=== PATIENT | male | born 1955 | race Caucasian/White ===

== ENCOUNTER 2020-01-26 12:52 | Emergency (ER) | payer MEDICARE, MEDICAID, SELFPAY ==
[2020-01-26 13:13] VITALS: BP 124/91; PULSE 84; RESP 20; TEMP 37.2; O2SAT 100
--- NOTE | 2020-01-26 13:20 | ED.CHESTPAIN ---
HPI - Chest Pain General Chief Complaint: Chest Pain Stated Complaint: chest pain History of Present Illness HPI narrative: This is a 65 year old male that comes in complaining of shortness of breath and being anxious. Patient pointing to his chest and his is having some chest pain. Patient states that his body feels like it is burning. Patient is not able to hear. I did discuss with patient his condition using sign language. Patient wanted me to call his sister Mr. Esparza at [phone] Related Data Home Medications Medication Instructions Recorded Confirmed benztropine 01/26/20 furosemide 01/26/20 gabapentin 01/26/20 levothyroxine 01/26/20 lithium carbonate PO 01/26/20 lithium carbonate PO 01/26/20 naproxen 01/26/20 omeprazole 01/26/20 oxcarbazepine 01/26/20 quetiapine 01/26/20 risperidone mg 01/26/20 risperidone microspheres mg IM 01/26/20 [Risperdal Consta] rosuvastatin mg 01/26/20 tamsulosin mg PO 01/26/20 trazodone 01/26/20 trihexyphenidyl 01/26/20 Allergies Allergy/AdvReac Type Severity Reaction Status Date / Time No Known Allergies Allergy Unverified 11/03/16 18:26 Review of Systems Review of Systems: Narrative: CONSTITUTIONAL: Denies fever, chills, or sweats. EYES: Denies visual changes, redness, or discharge. ENT: Denies rhinorrhea, congestion, sore throat, or otalgia. CARDIOVASCULAR:reports chest pain, palpitations, or edema. RESPIRATORY: reports cough or dyspnea. GASTROINTESTINAL: Denies abdominal pain, nausea, vomiting, or diarrhea. GENITOURINARY: Denies dysuria or hematuria. SKIN:[Denies rash or itching. MUSCULOSKELETAL:Denies back pain, joint pain, or myalgia. NEUROLOGIC: Denies headache, numbness, or weakness. PSYCHIATRIC:reports anxiety or depression PMFSH Comments At time as signature, I have reviewed and agree with nursing past medical, social, surgical and family history. Please see nursing chart for further information. There is no relevant family history pertinent to the presenting complaint. Exam Narrative: Exam Narrative: GENERAL:Well-appearing, well-nourished, and in no acute distress. HEAD:Normocephalic, atraumatic. EYES: PERRLA and EOMI. ENT: Nares clear, no rhinorrhea or epistaxis. Mucous membranes moist. NECK: Supple. CHEST: Clear to auscultation. No respiratory distress. positive taking deep breaths and pacing with sporadic deep breaths. HEART: Regular rate and rhythm. No murmur heard. Normal peripheral pulses. ABDOMEN: Soft, nontender, nondistended, normal active bowel sounds. EXTREMITIES: Normal range of motion. No edema. SKIN: Warm, dry, no rash. NEURO: No focal deficits. Alert and oriented x3. very anxious Course Vital Signs Vital signs: Vital Signs Temperature 98.9 F 01/26/20 13:13 Pulse Rate 84 01/26/20 13:13 Respiratory Rate 20 01/26/20 13:13 Blood Pressure 124/91 H 01/26/20 13:13 Pulse Oximetry 100 01/26/20 13:13 Temperature 98.9 F 01/26/20 13:13 Pulse Rate 84 01/26/20 13:13 Respiratory Rate 01/26/20 13:13 Blood Pressure 124/91 H 01/26/20 13:13 Pulse Oximetry 100 01/26/20 13:13 Transfer Transfered to: Other ([facility] ) Transportation: Other (Personal vehicle refused ambulance per patient he cannot leave his car here. ) MDM - Chest Pain Differential Diagnosis Differential diagnosis: Likely pneumothorax, atypical chest pain, costochondritis and other Discharge Plan Discharge Clinical Impression: Anxiety, Breath shortness Patient Disposition: Acute Care Hospital Condition: Stable Prescriptions: No Action naproxen 250 mg tablet RF: 0 lithium carbonate 300 mg tablet extended release PO RF: 0 lithium carbonate 300 mg tablet extended release PO RF: 0 oxcarbazepine 300 mg tablet RF: 0 quetiapine 100 mg tablet RF: 0 levothyroxine 75 mcg tablet RF: 0 risperidone 2 mg tablet RF: 0 tamsulosin
== END 2020-01-26 13:46 | disposition short-term general hospital (02) ==
PROVIDERS: Emergency Provider Nurse Practitioner Family
DX: F41.9 Anxiety disorder, unspecified (principal); R06.02 Shortness of breath
CPT/HCPCS: 93005; 99213; G0463

== ENCOUNTER 2020-01-31 05:35 | Emergency (ER) | payer MEDICARE, MEDICAID, SELFPAY ==
--- NOTE | ~2020-01-31 | XR_ITS ---
EXAMINATION: XR chest 1V portable DATE: 01/31/2020 06:18 INDICATION: Shortness of breath TECHNIQUE: frontal view of the chest was obtained. COMPARISON: Chest radiograph dated 12/04/2017 FINDINGS: Eventration along the right hemidiaphragm. Mild biapical pleural-parenchymal scarring. No pulmonary e adriana, pleural effusion or pneumothorax. Moderate-sized hiatal hernia. Heart size is normal. Mild thor acic dextrocurvature with mild spondylosis.. IMPRESSION: 1. No acute cardiopulmonary disease. 2. Moderate sized hiatal hernia. Reviewed, dictated and finalized at location A.
--- NOTE | ~2020-01-31 | CT_ITS ---
EXAMINATION: CT brain wo con DATE: 01/31/2020 07:03 INDICATION: Frequent falls. Unable to follow commands. TECHNIQUE: Computed tomography (CT) of the head was performed without intravenous contrast. Sagittal and coronal reconstructions were performed. The mA was adjusted according to patient size. Iterative reconstruction technique was employed. The dose-length product was 908.00 mGy-cm. COMPARISON: head CT dated 08/04/2019 FINDINGS: No fracture. No acute intracranial hemorrhage, acute infarction or abnormal extra axial fluid collect ion. Ventricles are normal and symmetric. No mass/mass effect. Mild mucosal thickening the bilateral ethmoid sinuses. Small mucous retention cyst in the bilateral maxillary sinuses. The orbits and masto id air cells are normal. IMPRESSION: 1. No acute intracranial process. Reviewed, dictated and finalized at location A.
[2020-01-31 05:36] VITALS: BP 131/75; PULSE 78; RESP 21; TEMP 37; O2SAT 97
[2020-01-31 05:46] VITALS: PULSE 78
--- NOTE | 2020-01-31 05:46 | ECG_ITS ---
Measurements Intervals [place] Rate: 78 P: 151 ME: 180 QRS: 193 QRSD: 94 T: 163 QT: 390 QTc: 444 Interpretive Statements SINUS RHYTHM ARM LEADS REVERSED INCOMPLETE RIGHT BUNDLE BRANCH BLOCK BORDERLINE T WAVE ABNORMALITY- INFERIOR LEADS BASELINE ARTIFACT- II, III, AVF BORDERLINE ECG Electronically Signed On 01-31-2020 7:16:45 CDT by Mj Fontanez D.O.
[2020-01-31 06:06] LABS: Basophils Absolute Auto 0.1 K/mm3 (0.0-0.1); Basophils Percent Auto 0.5 % (0.2-1.2); Eosinophils Absolute Auto 0.7 K/mm3 (0-0.3); Eosinophils Percent Auto 4.1 % (0-4.4); Hemoglobin 11.3 g/dL (14.0-18.0); Immature Granulocyte Absolute 0.07 K/mm3 (0.00-0.031); Immature Granulocyte Percent A 0.4 % (0-0.5); Lymphocytes Absolute Auto 1.69 K/mm3 (0.9-3.2); Lymphocytes Percent Auto 10.3 % (18.3-44.2); Mean Corpuscular HGB Conc 31.4 g/dl (32-36); Mean Corpuscular Hemoglobin 31.1 pg (26-34); Mean Corpuscular Volume 99.2 fl (80-100); Mean Platelet Volume 9.3 fl (7.4-10.4); Monocytes Absolute Auto 0.9 K/mm3 (0.1-0.6); Monocytes Percent Auto 5.7 % (2.6-8.5); Platelet Count Result 356 k/mm3 (150-375); Red Blood Count 3.63 M/mm3 (4.6-6.20); Red Cell Distribution Width 12.7 % (11.5-14.5); White Blood Count 16.4 K/mm3 (4.5-10.0)
--- NOTE | 2020-01-31 06:28 | PC.NURSE ---
Pt reports he is Hard of hearing and is able to sign. pt reports he feels like it is hard to walk and feels like he cannot hold things. pt reports he has been falling a lot. spoke w/ grain operations manager Yin #[id number]
[2020-01-31 06:34] LABS: Blood Urea Nitrogen 12 mg/dL (9-20); Calcium 9.1 mg/dL (8.4-10.2); Carbon Dioxide 25 mmol/L (22-30); Chloride 107 mmol/L (98-107); Estimated Glomerular Filt Rate > 60; Glucose 95 mg/dL (75-110); Sodium 138 mmol/L (137-145)
[2020-01-31 06:50] VITALS: BP 120/71; PULSE 76; RESP 19; O2SAT 95
--- NOTE | 2020-01-31 06:50 | PC.NURSE ---
pt down to ct
[2020-01-31 06:53] LABS: Potassium 4.2 mmol/L (3.4-5.0)
[2020-01-31 07:22] VITALS: BP 126/74; PULSE 85; RESP 20; TEMP 36.9; O2SAT 98
--- NOTE | 2020-01-31 08:51 | PC.NURSE ---
Patient requested that his sister Natalia be called so that she may contact his brother to come pick take him home from the ED. Natalia notified and said that she will call his brother.
--- NOTE | 2020-01-31 08:56 | ED.GENADULT ---
HPI - General Adult General Chief complaint: Shortness of Breath/Dyspnea Stated complaint: trouble breathing Time Seen by Provider: 01/31/20 06:05 Source: patient Mode of arrival: EMS Limitations: other (pt is hard of hearing, used oil exploration engineer.) History of Present Illness HPI narrative: 65-year-old was brought in from home with complaints of shortness of breath, weakness for last several weeks. Patient states that he fell several times. He also mentions that he went to [facility] few days ago where he had blood work and x-rays done which were all unremarkable. However he states that he did not have a CAT scan. He denies any chest pain, fever or chills. No history of nausea or vomiting. He states he lives by himself. He also mentions that he was having difficulty in driving Onset (ago): month(s) (3) Severity: moderate Relieving factors: none Exacerbating factors: none Associated symptoms: denies other symptoms Related Data Home Medications Medication Instructions Recorded Confirmed benztropine 01/26/20 furosemide 01/26/20 gabapentin 01/26/20 levothyroxine 01/26/20 lithium carbonate PO 01/26/20 lithium carbonate PO 01/26/20 naproxen 01/26/20 omeprazole 01/26/20 oxcarbazepine 01/26/20 quetiapine 01/26/20 risperidone mg 01/26/20 risperidone microspheres mg IM 01/26/20 [Risperdal Consta] rosuvastatin mg 01/26/20 tamsulosin mg PO 01/26/20 trazodone 01/26/20 trihexyphenidyl 01/26/20 clonazepam 01/31/20 Allergies Allergy/AdvReac Type Severity Reaction Status Date / Time No Known Allergies Allergy Unverified 11/03/16 18:26 Review of Systems Review of Systems: All systems reviewed & are unremarkable except as noted in HPI and below Constitutional: Constitutional: Reports no additional constitutional complaints ENT: Reports system reviewed and no additional complaints, except as documented Cardiovascular: Cardiovascular: Reports no additional cardiovascular complaints Respiratory: Respiratory: Reports no additional respiratory complaints Gastrointestinal: Gastrointestinal: Reports no additional gastrointestinal complaints Musculoskeletal: Musculoskeletal: Reports no additional musculoskeletal complaints Neurologic: Reports system reviewed and no additional complaints, except as documented Exam Narrative: Exam Narrative: GENERAL: Well-appearing, well-nourished, and in no acute distress. HEAD: Normocephalic, atraumatic. EYES: PERRLA and EOMI. ENT: Nares clear, no rhinorrhea or epistaxis. Mucous membranes moist. NECK: Supple. CHEST: Clear to auscultation. No respiratory distress. HEART: Regular rate and rhythm. No murmur heard. Normal peripheral pulses. ABDOMEN: Soft, nontender, nondistended, normal active bowel sounds. EXTREMITIES: Normal range of motion. No edema. SKIN: Warm, dry, no rash. NEURO: No focal deficits. Alert and oriented x3. PSYCH: Normal mood and affect. Course Course Emergency Course: Inform patient about his lab work, CT findings. Advised him to follow-up with Dr. Martin in [place]. And meanwhile continue his home medication. Vital Signs Vital signs: Vital Signs Temperature 37.0 C 01/31/20 05:36 Pulse Rate 78 01/31/20 05:36 Respiratory Rate 21 H 01/31/20 05:36 Blood Pressure 131/75 01/31/20 05:36 Pulse Oximetry 97 01/31/20 05:36 Temperature 36.9 C 01/31/20 07:22 Pulse Rate 85 01/31/20 07:22 Respiratory Rate 20 01/31/20 07:22 Blood Pressure 126/74 01/31/20 07:22 Pulse Oximetry 98 01/31/20 07:22 Medical Decision Making Vital Signs Vital Signs: Vital Signs Temperature 37.0 C 01/31/20 05:36 Pulse Rate 78 01/31/20 05:36 Respiratory Rate 21 H 01/31/20 05:36 Blood Pressure 131/75 01/31/20 05:36 Pulse Oximetry 97 01/31/20 05:36 Temperature 36.9 C 01/31/20 07:22 Pulse Rate 85 01/31/20 07:22 Respiratory Rate 20 01/31/20 07:22 Blood Pressure 126/74 01/31/20 07:22
[2020-01-31 09:00] VITALS: BP 131/89; PULSE 91; RESP 19; O2SAT 98
[2020-01-31 10:00] VITALS: BP 139/61; PULSE 84; RESP 21; TEMP 36.4; O2SAT 97
--- NOTE | 2020-01-31 10:22 | PC.NURSE ---
At time of discharge the patient reports he is unable to find his wallet or watch. There was no wallet or watch noted in the room at this time. Additionally I did not see either of these items this morning at shift change. Patient was brought in by ambulance and I told him that they may have been left at his home and that he should check there for the items. Patient agreed and told me that is what he will do as he was not sure he brought them with him. This was done via the video stratus for ASL. ED charge nurse is aware of this.
== END 2020-01-31 10:05 | disposition home or self-care (01) ==
PROVIDERS: Emergency Provider Family Medicine
DX: R53.1 Weakness (principal); K44.9 Diaphragmatic hernia without obstruction or gangrene; I45.10 Unspecified right bundle-branch block; R94.31 Abnormal electrocardiogram [ECG] [EKG]; D64.9 Anemia, unspecified; E78.00 Pure hypercholesterolemia, unspecified; E03.9 Hypothyroidism, unspecified; E66.9 Obesity, unspecified; F41.9 Anxiety disorder, unspecified; F32.9 Major depressive disorder, single episode, unspecified; F20.0 Paranoid schizophrenia
CPT/HCPCS: 36415; 70450; 71045; 80048; 85025; 87804; 93005; 99284

== ENCOUNTER 2020-02-02 10:53 | Observation (INO) | payer MEDICARE, MEDICAID, SELFPAY ==
[2020-02-02] VITALS (27 sets, daily range): BP systolic 95–141; BP diastolic 49–93; PULSE 56–82; RESP 16–22; TEMP 36.4–36.7; O2SAT 95–100
--- NOTE | ~2020-02-02 | CT_ITS ---
EXAMINATION: CT brain wo con INDICATION: Altered mental status COMPARISON: 04/01/2020 TECHNIQUE: Standard unenhanced head CT. The dose-length product (DLP) was 605.33 mGy-cm. The mA was a djusted according to patient size. Iterative reconstruction technique was employed. FINDINGS: There is no intracranial hemorrhage, acute infarction, or abnormal mass lesion. The ventric les are normal. There is no abnormal mass effect or midline shift. The moreno-white matter differentiat ion is normal. The basal cisterns are patent. The orbits are normal. There are small polyps or mucous retention cysts of the maxillary sinuses. There is mild thickening of the ethmoidal air cells. IMPRESSION: 1. No acute intracranial abnormality. Reviewed, dictated and finalized at location A.
--- NOTE | ~2020-02-02 | CT_ITS ---
EXAMINATION: CT abdomen pelvis w con INDICATION: Generalized abdominal pain TECHNIQUE: Computed tomographic images of the abdomen and pelvis were obtained after the administrati on of 100 cc of Omnipaque 350 intravenous contrast. The dose-length product (DLP) was 1041.10 mGy-cm. Automated exposure control and iterative reconstruction technique were employed. COMPARISON: 06/28/2009 FINDINGS: There are tiny pleural effusions. Bilateral dependent atelectasis is noted. Heart size is n ormal. There is a moderate-sized hiatal hernia. The liver, spleen, pancreas, gallbladder, and adrenal glands are normal. The kidneys are unremarkable. There is no free intraperitoneal gas or evidence of bowel obstruction. No pathologically enlarged abdominal or pelvic lymph nodes are identified. There is moderate lumbar spondylosis. There is distention of the urinary bladder. IMPRESSION: 1. No CT correlate for the patient's symptoms. Reviewed, dictated and finalized at location A.
--- NOTE | ~2020-02-02 | XR_ITS ---
EXAMINATION: XR chest 1V INDICATION: Altered mental status and weakness TECHNIQUE: AP view of the chest is obtained. COMPARISON: 01/31/2020 FINDINGS: The lung volumes are low. The heart size is upper limits of normal for technique. There are minimal bibasilar airspace opacities. No pleural effusion or pneumothorax is identified. There is a moderate-sized hiatal hernia. IMPRESSION: 1. Minimal airspace opacities of the lung bases, consistent with atelectasis versus pneumonia. Reviewed, dictated and finalized at location A. IMPRESSION: 1. Minimal airspace opacities of the lung bases, consistent with atelectasis ve rsus pneumonia.
--- NOTE | 2020-02-02 11:10 | ECG_ITS ---
Measurements Intervals [place] Rate: 77 P: 13 [place]: 180 QRS: -19 QRSD: 93 T: 10 QT: 385 QTc: 438 Interpretive Statements SINUS RHYTHM LOW QRS VOLTAGE IN PRECORDIAL LEADS BORDERLINE T WAVE ABNORMALITY- INFERIOR LEADS BASELINE ARTIFACT- I, II BORDERLINE ECG Electronically Signed On 02-02-2020 15:02:41 CDT by Mj Fontanez D.O.
[2020-02-02] MEDS: SODIUM CHLORIDE 0.9% IV 1,000 ML 999 ML IV CONT (11:22)
[2020-02-02 11:36] LABS: Basophils Absolute Auto 0.1 K/mm3 (0.0-0.1); Basophils Percent Auto 0.4 % (0.2-1.2); Eosinophils Absolute Auto 0.6 K/mm3 (0-0.3); Eosinophils Percent Auto 3.3 % (0-4.4); Hematocrit 35.1 % (42.0-52.0); Hemoglobin 11.2 g/dL (14.0-18.0); Immature Granulocyte Percent A 0.6 % (0-0.5); Mean Corpuscular HGB Conc 31.9 g/dl (32-36); Mean Corpuscular Hemoglobin 31.4 pg (26-34); Mean Corpuscular Volume 98.3 fl (80-100); Mean Platelet Volume 9.5 fl (7.4-10.4); Monocytes Absolute Auto 1.2 K/mm3 (0.1-0.6); Monocytes Percent Auto 6.8 % (2.6-8.5); Neutrophils Absolute Auto 13.5 K/mm3 (1.3-6.7); Neutrophils Percent Auto 78.9 % (45.5-73.1); Platelet Count Result 360 k/mm3 (150-375); Red Blood Count 3.57 M/mm3 (4.6-6.20); Red Cell Distribution Width 12.8 % (11.5-14.5); White Blood Count 17.1 K/mm3 (4.5-10.0)
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
[2020-02-02 11:38] LABS: Add Urine Microscopic? NO; Appearance Urine Clear (Clear); Bilirubin Urine Negative (Negative); Blood Urine Negative (Negative); Color Urine Yellow (Yellow); Glucose Urine UA Negative (Negative); Ketones Urine Negative (Negative); Leukocyte Esterase Ur Negative LEU/UL (Negative); Nitrate Urine Negative (Negative); Protein Urine Negative (Negative); Specific Grav Ur 1.011 (1.001-1.035); Urobilinogen Urine Negative mg/dL (<2.0)
[2020-02-02 11:44] LABS: Fractional Inspired Oxygen 21 %; HCO3 ABG 24.6 mEq/l (22.0-26.0); Oxygen Content ABG 14.5 %vol (16.0-22.0); Oxygen Saturation ABG 89.7 % (95.0-100.0); Oxyhemoglobin 87.8 % THb (90.0-100.0); PCO2 ABG 40.2 mmHg (35.0-45.0); PO2 ABG 56.6 mmHg (80.0-100.0); Total Hemoglobin 11.7 g/dL (12.0-18.0); pH ABG 7.405 (7.350-7.450)
[2020-02-02 11:45] LABS: Site Drawn LEFT RADIAL
[2020-02-02 11:46] LABS: Device ROOM AIR; Modified Allen's Test Pass
[2020-02-02 11:46] LABS: Prothrombin Time 13.2 Seconds (11.1-14.7)
[2020-02-02 11:48] LABS: Acetaminophen < 10 ug/mL (10-30); Ammonia 13 umol/L (9-30); Salicylate 1.1 mg/dL (2-20)
[2020-02-02 11:50] LABS: Ethanol < 10 mg/dL (<10)
[2020-02-02 11:54] LABS: Alanine Aminotransferase 20 U/L (4-50); Albumin Level 3.9 g/dL (3.5-5.1); Alkaline Phosphatase 97 U/L (38-126); Aspartate Amino Transferase 24 U/L (17-59); Bilirubin,Total 0.4 mg/dL (0.2-1.3); Blood Urea Nitrogen 10 mg/dL (9-20); Calcium 8.7 mg/dL (8.4-10.2); Carbon Dioxide 24 mmol/L (22-30); Chloride 106 mmol/L (98-107); Creatine Kinase 77 U/L (55-170); Estimated Glomerular Filt Rate > 60; Glucose 143 mg/dL (75-110); Magnesium 2.1 mg/dL (1.6-2.3); Phosphorus 4.2 mg/dL (2.5-4.5); Potassium 3.9 mmol/L (3.4-5.0); Sodium 138 mmol/L (137-145)
[2020-02-02 11:55] LABS: Amphetamine Screen Urine Negative (Negative); Barbiturate Screen Urine Negative (Negative); Benzodiazepines Screen Urine Negative (Negative); Cannabinoid Screen Urine Negative (Negative); Cocaine Screen Urine Negative (Negative); Methadone Screen Urine Negative (Negative); Opiate Screen Urine Negative (Negative); Phencyclidine Screen Urine Negative (Negative)
[2020-02-02 11:58] LABS: D Dimer 0.27 ug/mL (<0.48)
[2020-02-02 12:05] LABS: NT Pro B Type Natriuretic Pept 56 PG/ML (5-100); Troponin I < 0.012 ng/mL (0.000-0.034)
[2020-02-02 12:28] LABS: Lithium 0.5 mmol/L (0.6-1.2)
[2020-02-02 13:14] LABS: Lactic Acid Reflex 0.8 mmol/L (0.7-2.1)
[2020-02-02] MEDS: LACTATED RINGERS 1,000 ML 125 ML IV CONT (17:16)
--- NOTE | 2020-02-02 18:09 | ADMGEN ---
This patient, Armond Lopez, was admitted to [facility] Room 332-01. Patient/family oriented to hospital policies and general routines including ID bracelet, bed and alarms, visiting hours, pain management, procedures, bathroom and other care routines, personal items, smoking policy, room service/diet, and visiting hours. Valuables list has been completed. Information on how to activate the Rapid Response Team has been discussed. Patient/Family are encouraged to report perceived risks to care and to ask questions if they do not understand what they are told or what they should do.
--- NOTE | 2020-02-02 18:17 | PC.NURSE ---
Patient wrote a phone number down and gave it to staff wanting his sister to be notified that he was hospitalized and to tell her the reason why. Patient's sister is named iSs. Sis was called and notified @[id number] this evening.
[2020-02-02] MEDS: LORAZEPAM INJ 2 MG/ML VIAL 0.5 MG IV PUSH (20:05)
[2020-02-02] MEDS: FAMOTIDINE 20 MG/2 ML VIAL IV PUSH (20:06)
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
[2020-02-02] MEDS: OLANZapine 10 MG INJ VIAL 5 MG IM (21:37)
[2020-02-02] MEDS: QUEtiapine FUMARATE 100 MG TABLET PO (22:26)
[2020-02-02] MEDS: PANTOPRAZOLE 40 MG TABLET PO (22:26)
[2020-02-02] MEDS: TRAZODONE HCL 50 MG TABLET 150 MG PO (22:26)
--- NOTE | 2020-02-03 00:30 | PHAR ---
PT'S HOME MEDS LITHIUM CARBONATE ER 300 MG MELATONIN 2 MG VERIFIED BY PHARMACY
[2020-02-03 02:00] VITALS: BP 118/67; PULSE 74; RESP 18; TEMP 36.3; O2SAT 97
[2020-02-03] MEDS: LITHIUM CARBONATE 300 MG TABLET.ER PO ×2 (02:46→09:03)
[2020-02-03] MEDS: WATER, STERILE FOR INJECTION 10 ML VIAL XX (02:47)
[2020-02-03] MEDS: LORAZEPAM INJ 2 MG/ML VIAL 1 MG IV PUSH (03:45)
[2020-02-03 06:00] VITALS: BP 140/69; PULSE 65; RESP 16; TEMP 36.4; O2SAT 95
[2020-02-03] MEDS: LEVOTHYROXINE SODIUM 75 MCG TABLET PO (06:01)
[2020-02-03 06:24] LABS: Basophils Absolute Auto 0.1 K/mm3 (0.0-0.1); Basophils Percent Auto 0.6 % (0.2-1.2); Eosinophils Absolute Auto 0.6 K/mm3 (0-0.3); Eosinophils Percent Auto 5.2 % (0-4.4); Hematocrit 35.7 % (42.0-52.0); Hemoglobin 11.3 g/dL (14.0-18.0); Immature Granulocyte Absolute 0.06 K/mm3 (0.00-0.031); Immature Granulocyte Percent A 0.5 % (0-0.5); Lymphocytes Absolute Auto 2.43 K/mm3 (0.9-3.2); Lymphocytes Percent Auto 20.2 % (18.3-44.2); Mean Corpuscular HGB Conc 31.7 g/dl (32-36); Mean Corpuscular Hemoglobin 31.1 pg (26-34); Mean Corpuscular Volume 98.3 fl (80-100); Mean Platelet Volume 9.2 fl (7.4-10.4); Monocytes Absolute Auto 1.1 K/mm3 (0.1-0.6); Monocytes Percent Auto 9.2 % (2.6-8.5); Neutrophils Absolute Auto 7.7 K/mm3 (1.3-6.7); Neutrophils Percent Auto 64.3 % (45.5-73.1); Platelet Count Result 382 k/mm3 (150-375); Red Blood Count 3.63 M/mm3 (4.6-6.20)
[2020-02-03 06:31] LABS: Blood Urea Nitrogen 8 mg/dL (9-20); Calcium 9.2 mg/dL (8.4-10.2); Carbon Dioxide 27 mmol/L (22-30); Chloride 111 mmol/L (98-107); Estimated Glomerular Filt Rate > 60; Glucose 111 mg/dL (75-110); Magnesium 2.4 mg/dL (1.6-2.3); Potassium 4.3 mmol/L (3.4-5.0); Sodium 141 mmol/L (137-145)
[2020-02-03 07:09] LABS: CRP 3.3 mg/dL (<1.0)
[2020-02-03 07:16] LABS: Lactate Dehydrogenase 421 U/L (313-618)
[2020-02-03 08:00] VITALS: O2SAT 93
[2020-02-03] MEDS: CLONAZEPAM 0.5 MG TAB PO (09:01)
[2020-02-03] MEDS: FERROUS SULFATE 324 MG TABLET PO (09:01)
[2020-02-03] MEDS: PANTOPRAZOLE 40 MG TABLET PO (09:01)
[2020-02-03] MEDS: ROSUVASTATIN 10 MG TABLET PO (09:01)
[2020-02-03] MEDS: risperiDONE 1 MG TABLET 2 MG PO ×2 (09:01→12:27)
[2020-02-03] MEDS: TAMSULOSIN HCL 0.4 MG CAPSULE PO (09:01)
[2020-02-03] MEDS: BENZTROPINE MESYLATE 1 MG TABLET PO (09:01)
[2020-02-03] MEDS: FUROSEMIDE 20 MG TABLET PO (09:01)
[2020-02-03] MEDS: NAPROXEN 250 MG TABLET PO (09:01)
[2020-02-03] MEDS: OXcarbazepine 300 MG TABLET PO ×2 (09:01→12:27)
[2020-02-03 10:31] VITALS: BP 139/78; PULSE 79; RESP 16; TEMP 36.8; O2SAT 97
--- NOTE | 2020-02-03 11:42 | PM.IMPN ---
Subjective Date/time seen: 02/03/20 1045 Objective Data Vital Signs Vital Signs: Vital Signs - 24 hr 02/02/20 11:45 02/02/20 11:46 02/02/20 12:08 Temperature Pulse Rate 67 66 63 Respiratory Rate 19 19 20 Blood Pressure 96/55 L 95/77 L Pulse Oximetry 95 95 96 02/02/20 12:09 02/02/20 12:35 02/02/20 12:54 Temperature Pulse Rate 63 61 56 L Respiratory Rate 20 17 17 Blood Pressure 95/77 L Pulse Oximetry 97 98 96 02/02/20 13:02 02/02/20 13:03 02/02/20 13:27 Temperature Pulse Rate 57 L 58 L 68 Respiratory Rate 18 18 19 Blood Pressure 123/64 Pulse Oximetry 97 97 02/02/20 13:38 02/02/20 13:45 02/02/20 13:46 Temperature Pulse Rate 70 60 57 L Respiratory Rate 20 20 19 Blood Pressure 141/72 H Pulse Oximetry 100 100 100 02/02/20 14:02 02/02/20 14:03 02/02/20 14:16 Temperature Pulse Rate 63 62 76 Respiratory Rate 19 20 17 Blood Pressure 128/93 H Pulse Oximetry 99 99 100 02/02/20 14:30 02/02/20 14:38 02/02/20 14:59 Temperature Pulse Rate 68 73 71 Respiratory Rate 22 H 16 20 Blood Pressure 122/81 Pulse Oximetry 98 98 02/02/20 15:00 02/02/20 15:02 02/02/20 15:03 Temperature Pulse Rate 69 68 68 Respiratory Rate 20 17 18 Blood Pressure 125/57 L Pulse Oximetry 02/02/20 15:15 02/02/20 15:30 02/02/20 22:00 Temperature 98.1 F Pulse Rate 82 79 Respiratory Rate 20 18 Blood Pressure 133/85 Pulse Oximetry 98 97 02/03/20 02:00 02/03/20 06:00 02/03/20 08:00 Temperature 97.4 F L 97.6 F Pulse Rate 74 65 Respiratory Rate 18 16 Blood Pressure 118/67 140/69 Pulse Oximetry 97 95 93 02/03/20 10:31 Temperature 98.3 F Pulse Rate 79 Respiratory Rate 16 Blood Pressure 139/78 Pulse Oximetry 97 Intake/Output Intake/Output: Intake & Output 04/2402/01/20 02/02/20 02/03/20 23:59 23:59 23:59 23:59 Intake Total 1770 880 Output Total 300 Balance 1470 880 Meds/Results Medications: Active Medications Generic Name Dose Route Start Last Admin Trade Name Freq PRN Reason Stop Dose Admin Benztropine Mesylate 1 mg 02/03/20 09:00 02/03/20 09:01 Benztropine Mesylate PO 1 mg BID LORI Administration Clonazepam 0.5 mg 02/03/20 09:00 02/03/20 09:01 Klonopin Tablet PO 0.5 mg BID LORI Administration Famotidine 20 mg 02/02/20 21:00 02/03/20 09:02 Pepcid Iv IV PUSH Not Given Q12HR LORI Ferrous Sulfate 324 mg 02/03/20 09:00 02/03/20 09:01 Ferrous Sulfate PO 324 mg DAILY LORI Administration Furosemide 20 mg 02/03/20 09:00 02/03/20 09:01 Lasix Tablet PO 20 mg Q48H LORI Administration Ceftriaxone Sodium/Dextrose 1 gm in 50 mls @ 100 mls/hr 02/03/20 12:00 02/03/20 11:19 Rocephin 1 Gm/D5w 50 Ml IVPB 100 mls/hr Q24H LORI Administration Azithromycin 500 mg in 250 mls @ 250 mls/hr 02/03/20 14:00 Zithromax IVPB Q24H LORI Acetaminophen 1,000 mg in 100 mls @ 400 mls/hr 02/02/20 14:42 Ofirmev 1,000 Mg Ivpb IVPB 02/03/20 14:43 Q6H PRN Mild Pain (1-3) or Fever Levothyroxine Sodium 75 mcg 02/03/20 06:30 02/03/20 06:01 Synthroid PO 75 mcg DAILY@0630 LORI Administration [place] Carbonate 300 mg 02/03/20 09:00 02/03/20 09:03 Lithobid PO 300 mg QAM LORI Administration [place] Carbonate 600 mg 02/03/20 21:00 Lithobid PO HS LORI Naproxen 250 mg 02/03/20 09:00 02/03/20 09:01 Naproxen PO 250 mg BID LORI Administration Oxcarbazepine 300 mg 02/03/20 09:00 02/03/20 09:01 Trileptal PO 300 mg TID LORI Administration Pantoprazole Sodium 40 mg 02/02/20 21:00 02/03/20 09:01 Protonix PO 40 mg Q12HR LORI Administration Quetiapine Fumarate 100 mg 02/02/20 21:00 02/02/20 22:26 Seroquel PO 100 mg HS LORI Administration Risperidone 2 mg 02/03/20 09:00 02/03/20 09:01 Risperdal PO 2 mg TID LORI Administration Rosuvastatin Calcium 10 mg 02/03/20 09:00 02/03/20 09:01 Crestor PO 10
[2020-02-03 12:17] LABS: SARS-CoV-2 RNA PCR Negative
--- NOTE | 2020-02-03 14:29 | PM.DS ---
DS: Diagnosis Admitting Diagnosis Admitting Diagnosis: Pneumonia, unspecified organism Discharge Diagnosis (1) Pneumonia: Qualifiers: Laterality: bilateral Lung location: lower lobe of lung Pneumonia type: due to unspecified organism Qualified Code(s): J18.9 - Pneumonia, unspecified organism Code(s): J18.9 - Pneumonia, unspecified organism Status: Acute Assessment and Plan: Date of Service 02/03/20 Mr Lopez is a 65yo M with schizoeffective disorder who presented to the ED with shortness of breath. 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 He has had multiple ED visits both here and at [facility] recently due to not feeling well. Chest XR shows mild bibasilar airspace opacities and he had leukocytosis on arrival. COVID-19 testing was negative. He was treated for pneumonia with IV azithromycin and rocephin, discharged with oral azithromycin to complete the course in addition to albuterol MDi as needed. He was hemodynamically stable for discharge 02/03/20. Patient's psychiatrist is Dr Omer Meadows and he recently had a telemedicine visit 01/29/[address] Meadows's office. He was also recently seen in the office 01/15/10. His Consta IM injections are administered by an family medicine resident member (Polina Faria) every 14 days. He was noted to be anxious here and pacing in the room. His mood was much improved when he was told he was discharging. He will follow up with Dr Meadows as well as his PCP. He has an upcoming new patient appointment with pulmonology in 2 weeks. (2) Anxiety: Code(s): F41.9 - Anxiety disorder, unspecified Status: Chronic (3) Depression: Code(s): F32.9 - Major depressive disorder, single episode, unspecified Status: Chronic Assessment and Plan: Maintained on his home medications. (4) Hypercholesterolemia: Code(s): E78.00 - Pure hypercholesterolemia, unspecified Status: Chronic Assessment and Plan: Continue with rosuvastatin (5) Anemia: Code(s): D64.9 - Anemia, unspecified Status: Chronic (6) Hypothyroidism: Code(s): E03.9 - Hypothyroidism, unspecified Status: Chronic (7) Paranoid schizophrenia: Code(s): F20.0 - Paranoid schizophrenia Status: Chronic DS: Summary Time Spent with Patient Time attestation: Total time spent providing and/or coordinating discharge services: 45 minutes Exam Narrative: Exam Narrative: General: Well-appearing male, anxious, pacing in the room. HEENT: Normocephalic, EOMI, oral mucosa moist. Cardiovascular: Rate and rhythm are regular. Respiratory: Lungs clear to auscultation all abbott. Respirations even and nonlabored, tolerating room air. Abdomen: Soft, non-tender, non-distended, bowel sounds present. Extremities: Peripheral pulses intact. No edema. Neuro: No focal neurological deficits. Speech is slow but clear. DS: Data Data Completed and Pending Labs on day of discharge: Labs from last 24 hours 02/03/20 02/03/20 02/03/20 06:09 06:09 06:09 WBC RBC Hgb Hct MCV MCH MCHC RDW Plt Count MPV Immature Gran % (Auto) Neut % (Auto) Lymph % (Auto) [place] % (Auto) Eos % (Auto) Baso % (Auto) Lymph # (Auto) [place] # (Auto) Eos # (Auto) Baso # (Auto) Abs Immat Gran (auto) Absolute Neuts (auto) Absolute Nucleated RBC Nucleated RBC % Sodium 141 Potassium 4.3 Chloride 111 H Carbon Dioxide 27 BUN 8 L Creatinine 1.00 Estim Creat Clear Calc Not Reportable Estimated GFR > 60 Glucose 111 H Calcium 9.2 Magnesium 2.4 H Lactate Dehydrogenase 421 C-Reactive Protein 3.3 H TSH (Reflex) 4.060 Free T4 Pending SARS-CoV-2 RNA (RT-PCR) 02/03/20 02/02/20 02/02/20 06:09 15:16 12:39 WBC 12.0 H RBC 3.63 L Hgb 11.3 L Hct 35.7 L
[2020-02-03 20:45] LABS: Total Triiodothyronine (T3) 1.08 NG/ML (0.97-1.69)
== END 2020-02-03 14:20 | disposition home or self-care (01) ==
LOC: ANHED 14:56 → ANH3MEDSUR 02-03 08:11
PROVIDERS: Emergency Medicine Emergency Medical Services; Nurse Practitioner; Admitting Provider Hospitalist; Emergency Provider Emergency Medicine; Visit Provider Internal Medicine
DX: J18.9 Pneumonia, unspecified organism (principal); R06.02 Shortness of breath; Z20.828 Contact with and (suspected) exposure to other viral communicable diseases; F41.9 Anxiety disorder, unspecified; F32.9 Major depressive disorder, single episode, unspecified; E78.00 Pure hypercholesterolemia, unspecified; D64.9 Anemia, unspecified; E03.9 Hypothyroidism, unspecified; F20.0 Paranoid schizophrenia; H91.90 Unspecified hearing loss, unspecified ear; Z87.891 Personal history of nicotine dependence
CPT/HCPCS: 36415; 36600; 51701; 70450; 71045; 74177; 80048; 80053; 80178; 80307; 81003; 82140; 82550; 82805; 83605; 83615; 83735; 83880; 84100; 84439; 84443; 84480; 84484; 85025; 85380; 85610; 85730; 86140; 87040; 87635; 93005; 96361; 96365; 96366; 96372; 96375; 96376; 99285; A9270; C9803; G0378; J0456; J0696; J2060; J7030; J7120; Q9967; U0003

== ENCOUNTER 2020-02-22 06:15 | Inpatient (IN) | payer MEDICARE, MEDICAID, SELFPAY ==
[2020-02-22] VITALS (8 sets, daily range): BP systolic 118–134; BP diastolic 68–82; PULSE 68–77; RESP 18–27; TEMP 36.9–37.3; O2SAT 93–98; BMI 29.4
--- NOTE | ~2020-02-22 | CT_ITS ---
EXAMINATION: CT brain wo con INDICATION: Head injury COMPARISON: None TECHNIQUE: Standard unenhanced head CT. The dose-length product (DLP) was 605.33 mGy-cm. The mA was a djusted according to patient size. Iterative reconstruction technique was employed. FINDINGS: There is a left parietal scalp hematoma. There is no intracranial hemorrhage, acute infarct ion, or abnormal mass lesion. The ventricles are normal. There is no abnormal mass effect or midline shift. The moreno-white matter differentiation is normal. The basal cisterns are patent. The orbits are normal. The paranasal sinuses, mastoids and calvarium are normal. IMPRESSION: 1. Left parietal scalp hematoma without acute intracranial abnormality. Reviewed, dictated and finalized at location A.
--- NOTE | ~2020-02-22 | XR_ITS ---
EXAMINATION: XR shoulder LT min 2V INDICATION: Left shoulder pain TECHNIQUE: Four views of the left shoulder are obtained. COMPARISON: None available FINDINGS: There is no fracture, dislocation, or subluxation. The bones, soft tissues, and joint space s are normal. IMPRESSION: 1. No acute osseous abnormality. Reviewed, dictated and finalized at location A.
--- NOTE | ~2020-02-22 | XR_ITS ---
EXAMINATION: XR chest 2V DATE: 02/22/2020 07:10 INDICATION: Shortness of breath TECHNIQUE: AP and lateral views of the chest are obtained. COMPARISON: 02/02/2020 FINDINGS: There is a moderate-sized hiatal hernia. The heart size is upper limits of normal for techn ique. There are airspace opacities in the left mid lower lung zones. No definite pleural effusion or pneumothorax is identified. There is mild thoracic spondylosis. IMPRESSION: 1. Airspace opacities of the left mid and lower lung zones, consistent with atelectasis versus pneumo hillary. Reviewed, dictated and finalized at location A. IMPRESSION: 1. Airspace opacities of the left mid and lower lung zones, consistent with ate lectasis versus pneumonia.
--- NOTE | ~2020-02-22 | CT_ITS ---
EXAMINATION: CT cervical spine wo con DATE: 02/22/2020 07:05 INDICATION: Neck pain TECHNIQUE: Computed tomography (CT) of the cervical spine was performed without intravenous contrast. The dose-length product (DLP) was 470.40 mGy-cm. Automated exposure control and iterative reconstruc tion technique were employed. COMPARISON: None FINDINGS: There is no fracture, dislocation, or subluxation. The vertebral body heights and alignment are normal. There is moderate loss of intervertebral disc space height at C4-5, C5-6, and C6-7. The odontoid is intact. There is moderate to severe multilevel facet and uncovertebral joint osteoarthrit is. IMPRESSION: 1. Severe cervical spondylosis without acute findings. Reviewed, dictated and finalized at location A.
[2020-02-22 06:46] LABS: Basophils Absolute Auto 0.1 K/mm3 (0.0-0.1); Basophils Percent Auto 0.4 % (0.2-1.2); Eosinophils Absolute Auto 0.8 K/mm3 (0-0.3); Eosinophils Percent Auto 3.3 % (0-4.4); Hematocrit 38.3 % (42.0-52.0); Hemoglobin 11.9 g/dL (14.0-18.0); Immature Granulocyte Absolute 0.14 K/mm3 (0.00-0.031); Immature Granulocyte Percent A 0.6 % (0-0.5); Lymphocytes Absolute Auto 1.25 K/mm3 (0.9-3.2); Lymphocytes Percent Auto 5.4 % (18.3-44.2); Mean Corpuscular HGB Conc 31.1 g/dl (32-36); Mean Corpuscular Volume 99.7 fl (80-100); Mean Platelet Volume 9.4 fl (7.4-10.4); Monocytes Absolute Auto 1.3 K/mm3 (0.1-0.6); Monocytes Percent Auto 5.7 % (2.6-8.5); Neutrophils Absolute Auto 19.7 K/mm3 (1.3-6.7); Neutrophils Percent Auto 84.6 % (45.5-73.1); Platelet Count Result 404 k/mm3 (150-375); Red Blood Count 3.84 M/mm3 (4.6-6.20); Red Cell Distribution Width 13.2 % (11.5-14.5); White Blood Count 23.3 K/mm3 (4.5-10.0)
--- NOTE | 2020-02-22 06:48 | ED.GENADULT ---
HPI - General Adult General Chief complaint: Fall <Jose Basilio MD - Last Filed: 02/22/20 06:52> Stated complaint: fall, headache <Jose Basilio MD - Last Filed: 02/22/20 06:52> Time Seen by Provider: 02/22/20 06:18 <Jose Basilio MD - Last Filed: 02/22/20 06:52> History of Present Illness HPI narrative: Patient is a 65-year-old male who is hard of hearing and has history of schizophrenia who presents to the ER status post fall. Reports he went to his brother's house when he was walking and lost his balance and fell and struck his head. He did not lose consciousness. Since fall he has had some left shoulder pain has discomfort with forward flexion and external rotation. Denies any change in vision or expansion of his headache beyond where he has a lump on his head. 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 <Jose Basilio MD - Last Filed: 02/22/20 06:52> Related Data Home medications: Home Medications Medication Instructions Recorded Confirmed benztropine 1 mg PO BID 01/26/20 02/02/20 furosemide 20 mg PO EVERY OTHER DAY 01/26/20 02/02/20 levothyroxine 75 mcg PO DAILY 01/26/20 02/02/20 lithium carbonate 300 mg PO BID 01/26/20 02/02/20 naproxen 250 mg PO BID 01/26/20 02/02/20 omeprazole 20 mg PO BID 01/26/20 02/02/20 oxcarbazepine 300 mg PO TID 01/26/20 02/02/20 quetiapine 100 mg PO HS 01/26/20 02/02/20 risperidone 2 mg PO TID 01/26/20 02/02/20 rosuvastatin 10 mg PO DAILY 01/26/20 02/02/20 tamsulosin 0.4 mg PO DAILY 01/26/20 02/02/20 trazodone 150 mg PO HS 01/26/20 02/02/20 clonazepam 0.5 mg PO BID 01/31/20 02/02/20 esomeprazole magnesium [Nexium] 20 mg PO BID 02/02/20 02/02/20 ferrous sulfate 325 mg PO DAILY 02/02/20 02/02/20 melatonin 2 mg PO HS PRN 02/02/20 02/02/20 <Jose Basilio MD - Last Filed: 02/22/20 06:52> Allergies/adverse reactions: Allergies Allergy/AdvReac Type Severity Reaction Status Date / Time No Known Allergies Allergy Verified 02/22/20 06:34 <Jose Basilio MD - Last Filed: 02/22/20 06:52> Review of Systems Review of Systems: All systems reviewed & are unremarkable except as noted in HPI and below <Jose Basilio MD - Last Filed: 02/22/20 06:52> ROS unobtainable: Yes other (Hard of hearing) <Jose Basilio MD - Last Filed: 02/22/20 06:52> Respiratory: Respiratory: Denies cough and Denies dyspnea <Jose Basilio MD - Last Filed: 02/22/20 06:52> Musculoskeletal: Musculoskeletal: Reports arthralgias and Denies joint swelling <Jose Basilio MD - Last Filed: 02/22/20 06:52> Neurologic: Reports headache(s), Denies numbness and Denies weakness <Jose Basilio MD - Last Filed: 02/22/20 06:52> [facility] Past Medical History Medical History: Medical History (Updated 02/22/20 @ 07:47 by Emily Still MD) Anemia Anxiety Depression Hard of hearing History of psychiatric disorder Hypercholesterolemia Hypothyroidism Obesity Paranoid schizophrenia <Jose Basilio MD - Last Filed: 02/22/20 06:52> Family History Family History: Family History (System 02/03/20 @ 10:34 by Yadira Hernadez) Mother Diabetes mellitus Father Diabetes mellitus Sibling Diabetes mellitus <Jose Basilio MD - Last Filed: 02/22/20 06:52> Social History Social History: Social History (System 02/03/20 @ 10:34 by Yadira Hernadez) Social History: Patient lives home alone in apartment with his dog. Never been and does not have any children. Does not have a durable power corporate attorney for healthcare. He is a full code. He is disabled Smoking status: Former smoker Tobacco type: cigarettes Smoking end date: 10/23/99 Alcohol intake: never Substance use: never Substance use type: unknown Gender identity (if verbalized by the patient): Male Spiritual care concerns: No Agree to blood products: No <Jose Basilio MD - Last Filed: 02/22/20 06:52> Exam Narrative: E
[2020-02-22 07:00] LABS: Blood Urea Nitrogen 8 mg/dL (9-20); Calcium 9.2 mg/dL (8.4-10.2); Carbon Dioxide 21 mmol/L (22-30); Chloride 107 mmol/L (98-107); Estimated Glomerular Filt Rate > 60; Glucose 141 mg/dL (75-110); INR 1.1; Prothrombin Time 13.8 Seconds (11.1-14.7); Sodium 137 mmol/L (137-145)
[2020-02-22 07:01] LABS: Partial Thromboplastin Time 33.7 SECONDS (22.3-36.8)
[2020-02-22 07:25] LABS: Lithium 1.8 mmol/L (0.6-1.2)
[2020-02-22] MEDS: SODIUM CHLORIDE 0.9% IV 1,000 ML 500 ML IV CONT (07:58)
[2020-02-22 08:13] LABS: Lactic Acid 0.8 mmol/L (0.7-2.1)
[2020-02-22 09:42] LABS: Add Urine Microscopic? NO; Appearance Urine Clear (Clear); Bilirubin Urine Negative (Negative); Blood Urine Negative (Negative); Color Urine Yellow (Yellow); Glucose Urine UA Negative (Negative); Ketones Urine Negative (Negative); Leukocyte Esterase Ur Negative LEU/UL (Negative); Mucus Urine Rare /lpf; Nitrate Urine Negative (Negative); Protein Urine Negative (Negative); Specific Grav Ur 1.018 (1.001-1.035); Urobilinogen Urine Negative mg/dL (<2.0); WBC Urine 0-3 /hpf
--- NOTE | 2020-02-22 12:20 | ADMGEN ---
This patient, Armond Lopez, was admitted to [facility] Surg Room 326-01. Patient/family oriented to hospital policies and general routines including ID bracelet, bed and alarms, visiting hours, pain management, procedures, bathroom and other care routines, personal items, smoking policy, room service/diet, and visiting hours. Valuables list has been completed. Information on how to activate the Rapid Response Team has been discussed. Patient/Family are encouraged to report perceived risks to care and to ask questions if they do not understand what they are told or what they should do.
--- NOTE | 2020-02-22 15:00 | PM.IMHP ---
H&P: HPI History of Present Illness Chief complaint: pneumonia/lithium toxicity/leukocytosis/deaf/fall Narrative: Armond Lopez is a 65 year old male who was at his brother's house today, lost his balance, and fell from a standing height. He struck his head. He was brought the emergency department. He had no known illness at the time. He had not traveled recently. He had not been febrile. Upon arrival to the emergency department he was found to have pulmonary infiltrates leukocytosis. CT of the head and neck did not show any sign of injury. History was obtained by [id number] interaction with the patient and by reviewing the chart Review of Systems Review of Systems: ROS unobtainable: Yes unobtainable due to medical condition PMFSH Past Medical History Medical History Anemia Anxiety Depression Hard of hearing History of psychiatric disorder Hypercholesterolemia Hypothyroidism Obesity Paranoid schizophrenia Family History Family History Mother Diabetes mellitus Father Diabetes mellitus Sibling Diabetes mellitus Social History Social History (Updated 02/22/20 @ 15:01 by Izaiah Cartagena MD) Social History: Patient lives home alone in apartment with his dog. Never been and does not have any children. Does not have a durable power disability attorney for healthcare. He is a full code. He is disabled Smoking packs per day: 3 Smoking cigarettes per day: 60.0 Smoking status: Former smoker Tobacco type: cigarettes Smoking end date: 10/23/99 Alcohol intake: never Substance use: never Living arrangements: with family Gender identity (if verbalized by the patient): Male Spiritual care concerns: No Agree to blood products: No Meds Home Medications and Allergies Home Medications Medication Instructions Recorded Confirmed Type benztropine 1 mg PO BID 01/26/20 02/22/20 History furosemide 20 mg PO EVERY OTHER DAY 01/26/20 02/22/20 History levothyroxine 75 mcg PO DAILY 01/26/20 02/22/20 History lithium carbonate 300 mg PO BID 01/26/20 02/22/20 History naproxen 250 mg PO BID 01/26/20 02/22/20 History omeprazole 20 mg PO BID 01/26/20 02/22/20 History oxcarbazepine 300 mg PO TID 01/26/20 02/22/20 History quetiapine 100 mg PO HS 01/26/20 02/22/20 History risperidone 2 mg PO TID 01/26/20 02/22/20 History rosuvastatin 10 mg PO DAILY 01/26/20 02/22/20 History tamsulosin 0.4 mg PO DAILY 01/26/20 02/22/20 History trazodone 150 mg PO HS 01/26/20 02/22/20 History clonazepam 0.5 mg PO BID 01/31/20 02/22/20 History ferrous sulfate 325 mg PO DAILY 02/02/20 02/22/20 History melatonin 2 mg PO HS PRN 02/02/20 02/22/20 History albuterol sulfate 1 inhalation INHALATION QID PRN 02/03/20 02/22/20 Rx #6.7 gm Allergies Allergy/AdvReac Type Severity Reaction Status Date / Time No Known Allergies Allergy Verified 02/22/20 06:34 Vital Signs Vital Signs - 24 hr 02/22/20 06:16 02/22/20 08:15 02/22/20 09:33 Temperature 98.9 F Pulse Rate 77 68 69 Respiratory Rate 22 H 24 H 20 Blood Pressure 132/71 122/68 126/79 Pulse Oximetry 96 94 96 02/22/20 10:33 02/22/20 11:14 02/22/20 14:00 Temperature 99.1 F Pulse Rate 73 72 72 Respiratory Rate 20 27 H 18 Blood Pressure 134/82 125/72 Pulse Oximetry 97 98 98 Exam Narrative: Exam Narrative: HEENT: EOMI, PERRL, sclerae nonicteric, pharyngeal mucosa pink and intact NECK: No JVD, adenopathy, or thyromegaly CHEST: Diminished BS at bases, slightly coarse. Normal effort. HEART: NL S1/S2, regular, no murmur ABDOMEN: BS+, soft, nontender, no mass, no bruits EXTREMITIES: No cyanosis, edema, or clubbing NEUROLOGIC: CN intact and symmetric to inspection. MUSCULOSKELETAL: Tone and strength symmetric. PSYCH: Alert. Pleasant and cooperative. H&P: Results Labs Labs: Short CBC 02/22/20 Range/Units 06:40 WBC 23.3 H (4.5-10.0) K/mm3
[2020-02-22] MEDS: TAMSULOSIN HCL 0.4 MG CAPSULE PO (18:00)
[2020-02-22] MEDS: FERROUS SULFATE 324 MG TABLET PO (18:01)
[2020-02-22] MEDS: ROSUVASTATIN 10 MG TABLET PO (18:02)
[2020-02-22] MEDS: CLONAZEPAM 0.5 MG TAB PO (18:05)
--- NOTE | 2020-02-22 19:47 | PC.NURSE ---
Patient unable to follow commands due to psych history. Patient does not follow fall risk precautions even after several teachings and education on how to avoid falls and to call for help when needing assistance.
[2020-02-22] MEDS: risperiDONE 1 MG TABLET 2 MG PO (21:14)
[2020-02-22] MEDS: PANTOPRAZOLE 40 MG TABLET PO (21:14)
[2020-02-22] MEDS: QUEtiapine FUMARATE 100 MG TABLET PO (21:14)
[2020-02-22] MEDS: OXcarbazepine 300 MG TABLET PO (21:14)
[2020-02-22] MEDS: TRAZODONE HCL 50 MG TABLET 150 MG PO (21:14)
[2020-02-22] MEDS: BENZTROPINE MESYLATE 1 MG TABLET PO (21:14)
[2020-02-23 02:00] VITALS: BP 110/63; PULSE 66; RESP 16; TEMP 37.1; O2SAT 91
[2020-02-23 06:01] VITALS: BP 111/69; PULSE 64; RESP 20; TEMP 37.4; O2SAT 92
[2020-02-23] MEDS: LEVOTHYROXINE SODIUM 75 MCG TABLET PO (06:06)
[2020-02-23] MEDS: OXcarbazepine 300 MG TABLET PO ×3 (06:06→21:16)
[2020-02-23] MEDS: risperiDONE 1 MG TABLET 2 MG PO ×3 (06:06→21:16)
[2020-02-23 07:05] LABS: Hematocrit 36.4 % (42.0-52.0); Hemoglobin 11.3 g/dL (14.0-18.0); Mean Corpuscular Hemoglobin 30.6 pg (26-34); Mean Corpuscular Volume 98.6 fl (80-100); Mean Platelet Volume 9.3 fl (7.4-10.4); Platelet Count Result 415 k/mm3 (150-375); Red Blood Count 3.69 M/mm3 (4.6-6.20); Red Cell Distribution Width 13.4 % (11.5-14.5); White Blood Count 16.1 K/mm3 (4.5-10.0)
[2020-02-23 07:18] LABS: Blood Urea Nitrogen 6 mg/dL (9-20); Calcium 8.8 mg/dL (8.4-10.2); Carbon Dioxide 23 mmol/L (22-30); Chloride 109 mmol/L (98-107); Estimated CRCL calculation 81 ml/min; Estimated Glomerular Filt Rate > 60; Glucose 114 mg/dL (75-110); Potassium 3.7 mmol/L (3.4-5.0); Sodium 139 mmol/L (137-145)
[2020-02-23 07:48] LABS: Lithium 1.1 mmol/L (0.6-1.2)
[2020-02-23] MEDS: ENOXAPARIN 40 MG/0.4 ML SYRINGE SUB-Q (08:06)
[2020-02-23] MEDS: FERROUS SULFATE 324 MG TABLET PO (08:06)
[2020-02-23] MEDS: PANTOPRAZOLE 40 MG TABLET PO ×2 (08:07→21:16)
[2020-02-23] MEDS: CLONAZEPAM 0.5 MG TAB PO ×2 (08:07→17:07)
[2020-02-23] MEDS: BENZTROPINE MESYLATE 1 MG TABLET PO ×2 (08:07→21:16)
[2020-02-23] MEDS: TAMSULOSIN HCL 0.4 MG CAPSULE PO (08:07)
[2020-02-23] MEDS: ROSUVASTATIN 10 MG TABLET PO (08:07)
[2020-02-23 10:00] VITALS: BP 113/56; PULSE 62; RESP 16; TEMP 36.4; O2SAT 90
[2020-02-23 14:00] VITALS: BP 118/67; PULSE 67; RESP 18; TEMP 36.5; O2SAT 91
[2020-02-23] MEDS: ACETAMINOPHEN 325 MG TABLET 650 MG PO (17:07)
--- NOTE | 2020-02-23 17:26 | PM.IMPN ---
Progress Note: A&P Assessment and Plan (1) Pneumonia: Qualifiers: Laterality: bilateral Lung location: lower lobe of lung Pneumonia type: due to unspecified organism Qualified Code(s): J18.9 - Pneumonia, unspecified organism Code(s): J18.9 - Pneumonia, unspecified organism Status: Acute Assessment and Plan: This is likely community-acquired pneumonia SARS-CoV-2 RT-PCR pending Clinically improving Azithromycin and ceftriaxone day 2 (2) Leukocytosis: Qualifiers: Leukocytosis type: unspecified Qualified Code(s): D72.829 - Elevated white blood cell count, unspecified Code(s): D72.829 - Elevated white blood cell count, unspecified Status: Acute Assessment and Plan: Likely due to pneumonia Improving (3) [place] toxicity: Qualifiers: Encounter type: initial encounter Injury intent: accidental or unintentional Qualified Code(s): T56.891A - Toxic effect of other metals, accidental (unintentional), initial encounter Code(s): T56.891A - Toxic effect of other metals, accidental (unintentional), initial encounter Status: Acute Assessment and Plan: 1.8 Hold medication Follow-up level 1.1, so resume at lower dose (4) Anemia: Qualifiers: Anemia type: iron deficiency Iron deficiency anemia type: unspecified iron deficiency Qualified Code(s): D50.9 - Iron deficiency anemia, unspecified Code(s): D64.9 - Anemia, unspecified Status: Chronic Assessment and Plan: By history this is chronic and treated with iron replacement No history of bleeding (5) Paranoid schizophrenia: Code(s): F20.0 - Paranoid schizophrenia Status: Chronic Assessment and Plan: Continue home regimen Family wishes NH placement This may be delayed due to SARS-CoV-2 rt-PCR analyzer malfunction (6) Hypothyroidism: Qualifiers: Hypothyroidism type: acquired Qualified Code(s): E03.9 - Hypothyroidism, unspecified Code(s): E03.9 - Hypothyroidism, unspecified Status: Chronic Assessment and Plan: Continue levothyroxine 75 mcg daily (7) Depression: Qualifiers: Depression Type: unspecified Qualified Code(s): F32.9 - Major depressive disorder, single episode, unspecified Code(s): F32.9 - Major depressive disorder, single episode, unspecified Status: Chronic Assessment and Plan: Continue home regimen (8) Anxiety: Code(s): F41.9 - Anxiety disorder, unspecified Status: Chronic Assessment and Plan: Continue home regimen Subjective Date/time seen: 02/23/20 12:15 Review of Systems Review of Systems: All systems reviewed & are unremarkable except as noted in HPI and below Exam Narrative: Exam Narrative: HEENT: EOMI, PERRL, sclerae nonicteric, pharyngeal mucosa pink and intact NECK: No JVD, adenopathy, or thyromegaly CHEST: Diminished BS at bases, slightly coarse. Normal effort. HEART: NL S1/S2, regular, no murmur ABDOMEN: BS+, soft, nontender, no mass, no bruits EXTREMITIES: No cyanosis, edema, or clubbing NEUROLOGIC: CN intact and symmetric to inspection. MUSCULOSKELETAL: Tone and strength symmetric. PSYCH: Alert. Pleasant and cooperative. Objective Data Vital Signs Vital Signs: Vital Signs - 24 hr 02/22/20 18:00 02/22/20 22:00 02/23/20 02:00 Temperature 98.5 F 98.5 F 98.8 F Pulse Rate 68 69 66 Respiratory Rate 18 20 16 Blood Pressure 123/70 118/72 110/63 Pulse Oximetry 96 93 91 02/23/20 06:01 02/23/20 10:00 02/23/20 14:00 Temperature 99.3 F 97.5 F L 97.7 F Pulse Rate 64 62 67 Respiratory Rate 20 16 18 Blood Pressure 111/69 113/56 L 118/67 Pulse Oximetry 92 90 91 Intake/Output Intake/Output: Intake & Output 02/20/20 02/21/20 02/22/20 02/23/20 23:59 23:59 23:59 23:59 Intake Total 1780 1660 Output Total 900 Balance 1780 760 Meds/Results Medications: Active Medications Gen
[2020-02-23 18:00] VITALS: BP 121/62; PULSE 67; RESP 16; TEMP 36.8; O2SAT 91
[2020-02-23] MEDS: LITHIUM CARBONATE 150 MG CAPSULE PO (18:16)
[2020-02-23] MEDS: TRAZODONE HCL 50 MG TABLET 150 MG PO (21:16)
[2020-02-23] MEDS: QUEtiapine FUMARATE 100 MG TABLET PO (21:16)
[2020-02-23 22:00] VITALS: BP 127/74; PULSE 76; RESP 16; TEMP 36.9; O2SAT 93
[2020-02-24] MEDS: ACETAMINOPHEN 325 MG TABLET 650 MG PO (01:26)
[2020-02-24] MEDS: MELATONIN 3 MG TABLET PO (01:26)
[2020-02-24 02:00] VITALS: BP 128/77; PULSE 68; RESP 16; TEMP 36.6; O2SAT 95
[2020-02-24] MEDS: LEVOTHYROXINE SODIUM 75 MCG TABLET PO (05:42)
[2020-02-24] MEDS: OXcarbazepine 300 MG TABLET PO ×2 (05:42→13:02)
[2020-02-24] MEDS: risperiDONE 1 MG TABLET 2 MG PO ×2 (05:42→13:02)
[2020-02-24 06:00] VITALS: BP 121/55; PULSE 66; RESP 20; TEMP 36.6; O2SAT 92
[2020-02-24] MEDS: CLONAZEPAM 0.5 MG TAB PO (08:56)
[2020-02-24] MEDS: FERROUS SULFATE 324 MG TABLET PO (08:58)
[2020-02-24] MEDS: PANTOPRAZOLE 40 MG TABLET PO (08:58)
[2020-02-24] MEDS: BENZTROPINE MESYLATE 1 MG TABLET PO (08:58)
[2020-02-24] MEDS: ROSUVASTATIN 10 MG TABLET PO (08:58)
[2020-02-24] MEDS: LITHIUM CARBONATE 150 MG CAPSULE PO (08:58)
[2020-02-24] MEDS: TAMSULOSIN HCL 0.4 MG CAPSULE PO (08:59)
--- NOTE | 2020-02-24 09:04 | PM.IMPN ---
Progress Note: A&P Assessment and Plan (1) Pneumonia: Qualifiers: Laterality: bilateral Lung location: lower lobe of lung Pneumonia type: due to unspecified organism Qualified Code(s): J18.9 - Pneumonia, unspecified organism Code(s): J18.9 - Pneumonia, unspecified organism Status: Acute Assessment and Plan: This is likely community-acquired pneumonia SARS-CoV-2 RT-PCR NEGATIVE Clinically improving Azithromycin and ceftriaxone day 3/7 (2) Leukocytosis: Qualifiers: Leukocytosis type: unspecified Qualified Code(s): D72.829 - Elevated white blood cell count, unspecified Code(s): D72.829 - Elevated white blood cell count, unspecified Status: Acute Assessment and Plan: Likely due to pneumonia Improving (3) [place] toxicity: Qualifiers: Encounter type: initial encounter Injury intent: accidental or unintentional Qualified Code(s): T56.891A - Toxic effect of other metals, accidental (unintentional), initial encounter Code(s): T56.891A - Toxic effect of other metals, accidental (unintentional), initial encounter Status: Acute Assessment and Plan: 1.8 Hold medication Follow-up level 1.1, so resume at lower dose (4) Anemia: Qualifiers: Anemia type: iron deficiency Iron deficiency anemia type: unspecified iron deficiency Qualified Code(s): D50.9 - Iron deficiency anemia, unspecified Code(s): D64.9 - Anemia, unspecified Status: Chronic Assessment and Plan: By history this is chronic and treated with iron replacement No history of bleeding (5) Paranoid schizophrenia: Code(s): F20.0 - Paranoid schizophrenia Status: Chronic Assessment and Plan: Continue home regimen Family wishes NH placement (6) Hypothyroidism: Qualifiers: Hypothyroidism type: acquired Qualified Code(s): E03.9 - Hypothyroidism, unspecified Code(s): E03.9 - Hypothyroidism, unspecified Status: Chronic Assessment and Plan: Continue levothyroxine 75 mcg daily (7) Depression: Qualifiers: Depression Type: unspecified Qualified Code(s): F32.9 - Major depressive disorder, single episode, unspecified Code(s): F32.9 - Major depressive disorder, single episode, unspecified Status: Chronic Assessment and Plan: Continue home regimen (8) Anxiety: Code(s): F41.9 - Anxiety disorder, unspecified Status: Chronic Assessment and Plan: Continue home regimen Subjective Date/time seen: 02/24/20 09:04 Review of Systems Review of Systems: All systems reviewed & are unremarkable except as noted in HPI and below Exam Narrative: Exam Narrative: HEENT: EOMI, PERRL, sclerae nonicteric, pharyngeal mucosa pink and intact NECK: No JVD, adenopathy, or thyromegaly CHEST: Diminished BS at bases, slightly coarse. Normal effort. HEART: NL S1/S2, regular, no murmur ABDOMEN: BS+, soft, nontender, no mass, no bruits EXTREMITIES: No cyanosis, edema, or clubbing NEUROLOGIC: CN intact and symmetric to inspection. MUSCULOSKELETAL: Tone and strength symmetric. PSYCH: Alert. Pleasant and cooperative. Objective Data Vital Signs Vital Signs: Vital Signs - 24 hr 02/23/20 10:00 02/23/20 14:00 02/23/20 18:00 Temperature 97.5 F L 97.7 F 98.2 F Pulse Rate 62 67 67 Respiratory Rate 16 18 16 Blood Pressure 113/56 L 118/67 121/62 Pulse Oximetry 90 91 91 02/23/20 22:00 02/24/20 02:00 02/24/20 06:00 Temperature 98.5 F 98 F 98 F Pulse Rate 76 68 66 Respiratory Rate 16 16 20 Blood Pressure 127/74 128/77 121/55 L Pulse Oximetry 93 95 92 Intake/Output Intake/Output: Intake & Output 02/21/20 02/22/20 02/23/20 02/24/20 23:59 23:59 23:59 23:59 Intake Total 1780 2225 200 Output Total 1225 400 Balance 1780 1000 -200 Meds/Results Medications: Active Medications Generic Name Dose Route Start Last Admin Trade Name F
--- NOTE | 2020-02-24 09:05 | PM.DS ---
DS: Summary Hospital Course Reason for hospitalization: SOB Hospital Course: Admitted for dyapnea. Found to have pulmonary infiltrates. Reponsded well to ceftriaxone and azithromycin. Family wished NH placement as pt no longer able to care for self. Time Spent with Patient Time attestation: Total time spent providing and/or coordinating discharge services: Exam Narrative: Exam Narrative: HEENT: EOMI, PERRL, sclerae nonicteric, pharyngeal mucosa pink and intact NECK: No JVD, adenopathy, or thyromegaly CHEST: Diminished BS at bases, slightly coarse. Normal effort. HEART: NL S1/S2, regular, no murmur ABDOMEN: BS+, soft, nontender, no mass, no bruits EXTREMITIES: No cyanosis, edema, or clubbing NEUROLOGIC: CN intact and symmetric to inspection. MUSCULOSKELETAL: Tone and strength symmetric. PSYCH: Alert. Pleasant and cooperative. DS: Data Data Completed and Pending Labs on day of discharge: Labs from last 24 hours 02/22/20 08:10 COVID-19 Pt Symptomatic Not Reportable COVID-19 PCR Interp Not detected SARS-CoV-2 Source Not Reportable SARS-CoV-2 RNA (RT-PCR) Not Reportable Preliminary micro results at discharge 02/22/20 07:52 Blood Culture - Preliminary Blood 02/22/20 07:51 Blood Culture - Preliminary Blood Discharge Plan Discharge Discharging Clinician: Izaiah Cartagena Patient Disposition: SNF Activity: no driving and as tolerated Diet: regular Patient Instructions: Fall Prevention (DC), Pneumonia (DC), [place] Toxicity (DC) Stand Alone Forms: General Discharge Information Follow-up/Referrals: PHYSICIAN NOT ON STAFF,NONSTAFF [Non-Staff] - Call for Appointment Discharge Medications: New lithium carbonate 150 mg Capsule 150 mg PO BIDWM Qty: 60 RF: 0 cefdinir 300 mg capsule 300 mg PO Q12H Qty: 9 RF: 0 azithromycin 500 mg tablet 500 mg PO DAILY 4 Days Qty: 4 RF: 0 Continued oxcarbazepine 300 mg tablet 300 mg PO TID RF: 0 quetiapine 100 mg tablet 100 mg PO HS RF: 0 levothyroxine 75 mcg tablet 75 mcg PO DAILY RF: 0 risperidone 2 mg tablet 2 mg PO TID RF: 0 tamsulosin 0.4 mg capsule 0.4 mg PO DAILY RF: 0 trazodone 150 mg tablet 150 mg PO HS RF: 0 benztropine 1 mg tablet 1 mg PO BID RF: 0 omeprazole 20 mg capsule,delayed release(DR/EC) 20 mg PO BID RF: 0 rosuvastatin 10 mg tablet 10 mg PO DAILY RF: 0 ferrous sulfate 325 mg (65 mg iron) Tablet 325 mg PO DAILY RF: 0 melatonin 1 mg Tablet 2 mg PO HS PRN (Reason: Insomnia) RF: 0 albuterol sulfate 90 mcg/actuation HFA aerosol inhaler 1 inhalation INHALATION QID PRN (Reason: shortness of breath or wheezing) Qty: 6.7 RF: 0 clonazepam 1 mg tablet 0.5 mg PO BID Qty: 60 RF: 0 Discontinued naproxen 250 mg tablet 250 mg PO BID RF: 0 lithium carbonate 300 mg tablet extended release 300 mg PO BID RF: 0 furosemide 20 mg tablet 20 mg PO EVERY OTHER DAY RF: 0 Date of admission: 02/22/20 09:22 Primary Care Provider: Mario,Joce Mccain Admitting Provider: Izaiah Cartagena Discharge Date/Time: 02/24/20 13:30 Attending physician on admission: Izaiah Cartagena Condition: Guarded Prognosis Quality VTE Prophylaxis VTE prophylaxis: pharmacologic ordered
[2020-02-24 10:00] VITALS: BP 115/80; PULSE 73; RESP 20; TEMP 36.5; O2SAT 95
== END 2020-02-24 13:30 | DRG 194 ==
LOC: ANHED 07:47 → ANH3MEDSUR 10:50
PROVIDERS: Emergency Medicine; Admitting Provider Internal Medicine; Emergency Provider Emergency Medicine; PCP Internal Medicine; Visit Provider Internal Medicine
DX: J18.9 Pneumonia, unspecified organism (principal); F20.0 Paranoid schizophrenia; Z20.828 Contact with and (suspected) exposure to other viral communicable diseases; R82.5 Elevated urine levels of drugs, medicaments and biological substances; D72.829 Elevated white blood cell count, unspecified; D50.9 Iron deficiency anemia, unspecified; E03.9 Hypothyroidism, unspecified; F41.8 Other specified anxiety disorders; H91.93 Unspecified hearing loss, bilateral; Z87.891 Personal history of nicotine dependence
CPT/HCPCS: 36415; 70450; 71046; 72125; 73030; 80048; 80178; 81003; 83605; 85025; 85027; 85610; 85730; 87040; 87635; 87804; 96365; 96367; 97161; 97165; 99285; A9270; J0456; J0696; J1650; J7030; U0003